=== PATIENT | female | born 1990 | race Hispanic/Latino ===

== ENCOUNTER 2021-07-14 13:02 | Emergency (ER) | payer OTHER, SELFPAY ==
[2021-07-14] MEDS ORDERED: Ondansetron ODT 4 MG TAB ONE (14:07)
[2021-07-14] MEDS ORDERED: HYDROcodone/Acetaminophen 5/325 mg Tablet ONE (14:07)
== END 2021-07-14 15:40 | disposition home or self-care (01) ==
LOC: ERS 13:02
DX: S40.012A Contusion of left shoulder, initial encounter (principal); V89.2XXA Person injured in unspecified motor-vehicle accident, traffic, initial encounter
CPT/HCPCS: 70450; 71045; 72125; G0390; Q0162